=== PATIENT | female | born 1980 | race Caucasian/White ===

== ENCOUNTER 2019-06-10 18:50 | Emergency (ER) | payer BC ==
--- OUTSIDE RECORDS SUMMARY | 2019-06-10 18:56 | XMS REPORT | Continuity of Care Document ---
:1980 External Reference #:[id number] Author Name Anselmo Pearson M.D. (transmitted by agent of provider Dahlia Land) Address [address] [place] [address] Problems Description No Information Available Social History Type Date Description Comments Sex Female Allergies, Adverse Reactions, Alerts Description No Information Available Medications Description No Information Available Medications Administered in Office Medication SIG Qnty Indications Ordering Provider Date TB Intradermal Test Anselmo Pearson M.D. 04/29/2019 Injection Immunizations Description No Information Available Vital Signs Description No Information Available Results Description No Information Available Procedures Description No Information Available Medical Devices Description No Information Available Encounters Type Date Location Provider Dx Diagnosis Office Visit 04/29/2019 TST/PPD Anselmo Pearson M.D. Z11.1 Encounter for screening 9:00a for respiratory tuberculosis Assessments Date Code Description Provider 04/29/2019 Z11.1 Encounter for screening for respiratory Anselmo Pearson M.D. tuberculosis Plan of Treatment No Information Available Functional Status Description No Information Available Mental Status Description No Information Available Referrals Description No Information Available
--- OUTSIDE RECORDS SUMMARY | 2019-06-10 18:56 | XMS REPORT | Continuity of Care Document ---
:1980 External Reference #:[id number] Author Name Anselmo Pearson M.D. (transmitted by agent of provider Radha Baptiste) Address [address] [place] [address] Problems Description No Information Available Social History [...] Medical Devices Description No Information Available Encounters Description No Information Available Assessments Description No Information Available Plan of Treatment No Information Available Functional Status Description No Information Available Mental Status Description No Information Available Referrals Description No Information Available
--- OUTSIDE RECORDS SUMMARY | 2019-06-10 18:56 | XMS REPORT | Continuity of Care Document ---
:1980 External Reference #:[id number] Author Name Anselmo Pearson M.D. (transmitted by agent of provider Dahlia Land) Address [address] [place] [address] Problems Description No Information Available Social History [...] Date Location Provider Dx Diagnosis Office Visit 05/02/2019 TST/PPD Anselmo Pearson M.D. 8:40a Office Visit 04/29/2019 TST/PPD Anselmo Pearson M.D. Z11.1 Encounter for screening 9:00a for respiratory tuberculosis Assessments Date Code Description Provider 04/29/2019 Z11.1 Encounter for screening for respiratory Anselmo Pearson M.D. tuberculosis Plan of Treatment No Information Available Functional Status Description No Information Available Mental Status Description No Information Available Referrals Description No Information Available
--- OUTSIDE RECORDS SUMMARY | 2019-06-10 18:57 | XMS REPORT ---
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 BMI V85.33 Active 593541032974405 33.0-33.9,ADULT Problem Menorrhagia 626.2 Active [id number] ALLERGIES No Information ENCOUNTERS Encounter Location Date Diagnosis [facility] [address] June, [place] [id number] [place] [address] May, Medical [place] [id number] [facility] 103 May, OBGYN [place] [id number] [facility] Mar, Excessive and frequent OBGYN [facility] menstruation with irregular [place], [place] [id number] cycle N92.1 and 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 [facility] 103 Mar, Excessive and frequent OBGYN [facility] menstruation with irregular [place], [place] [id number] cycle N92.1 and 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 [facility] 103 Dec, Excessive and frequent OBGYN [facility] menstruation with irregular [place], [place] [id number] cycle N92.1 and 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 [facility] 103 Dec, OBGYN [place] [id number] [facility] 103 Dec, Excessive and frequent OBGYN [facility] menstruation with irregular [place], [place] [id number] cycle N92.1 and 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 [facility] 103 Nov, OBGYN [place] [id number] [facility] 103 Nov, Excessive and frequent OBGYN [facility] menstruation with irregular [place], [place] [id number] cycle N92.1 [facility] 103 Nov, OBGYN [place] [id number] [facility] 103 Nov, Excessive and frequent OBGYN [facility] menstruation with irregular [place], [place] [id number] cycle N92.1 [facility] 103 Nov, OBGYN [place] [id number] [facility] 103 Nov, OBGYN [place] [id number] [facility] 103 Nov, OBGYN [place] [id number] [facility] 103 Nov, Excessive and frequent OBGYN [facility] menstruation with irregular [place], [place] [address] cycle N92.1 [facility] 103 Nov, Excessive and frequent OBGYN [facility] menstruation with irregular [place], [place] [id number] cycle N92.1 [facility] [address] 17 Nov, 2018 [facility] and [facility] [place] [place] [id number] cycle N92.1 [facility] 103 Nov, OBGYN [place] [id number] [facility] 103 Nov, Encounter for gynecological OBGYN [facility] examination (general) [place], [place] [id number] (routine) with abnormal findings Z01.411 ; Encounter for screening for malignant neoplasm of cervix Z12.4 and Excessive and frequent menstruation with irregular cycle N92.1 [facility] 103 Sep, OBGYN [place] [id number] [facility] 103 May, Menorrhagia 626.2 OBGYN [place] [id number] [facility] 103 Jan, OBGYN [place] [id number] [facility] 103 Jan, Menometrorrhagia 626.2 and OBGYN [facility] BMI 33.0-33.9,ADULT V85.33 [place] [id number] [facility] 103 Oct, Menometrorrhagia 626.2 and OBGYN [facility] BMI 33.0-33.9,ADULT V85.33 [place] [id number] [facility] [address] Sep, Medical Center [place] [id number] [facility] 103 Sep, Menometrorrhagia 626.2 OBN [place] [id number] [address] Aug, [address]ometrorrhagia [address] [place], BMI 33.0-33.9,ADULT V85.33 [place] [id number] [facility] 103 Aug, Menometrorrhagia 626.2 OBGYN [place] [id number] [facility] 103 Aug, Menometrorrhagia 626.2 OBN [place] [id number] [facility] 103 Aug, Menometrorrhagia 626.2 [facility] 621.0 [place] [id number] [facility] 103 Jul, Menometrorrhagia 626.2 [facility] [place] [address] V72.31 IMMUNIZATIONS No Known Immunizations SOCIAL HISTORY Never Assessed REASON FOR REFERRAL FUNCTIONAL STATUS PLAN OF CARE VITAL SIGNS MEDICATIONS Unknown Medications PROCEDURES No Known procedures RESULTS No Results REASON FOR VISIT tcb 04/15-Schedule TLH/BS/cysto. Insurance Providers [facility] Health Member Patient Patient Patient Patient Patient Subscriber Subscriber Subscriber Group Insurance Plan Plan Plan Plan ID Relationship Address Phone Name Date of ID Name Date of No Type Insurance Insurance Insurance Coverage to Subscriber Address Phone Name Dates [employer] [phone] [employer] [place] [id number] Blue [id number] [address] Cross/Blue [place] Cross/Blue Shield [id number] Shield [employer] [phone] [employer] [place] [id number] Blue [id number] [address] [place] Cross/Blue [place] Cross/Blue Shield [id number] Shield MEDICAL (GENERAL) HISTORY Type Description Date Medical History Hypertension Medical History Migraines w/ aura Surgical History Kidney blasting 2006 Surgical History hysteroscopy, D&C, polypectomy 10/16/10 Surgical History BTL 2004 Surgical History Hysteroscopy/D&C: Benign proliferative EM. No 12-22-18 hyperplasia noted Hospitalization History Gallbladder 2000 Hospitalization History Salmonella 2009 Hospitalization History chest pain/poss heart attack 2017
--- OUTSIDE RECORDS SUMMARY | 2019-06-10 18:57 | XMS REPORT ---
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 288398609 anemia secondary to blood loss (chronic) Problem BMI V85.33 Active 839889038218201 33.0-33.9,ADULT Problem Menorrhagia 626.2 Active 729755508 ALLERGIES Substance Reaction Event Type Date Status amoxicillin vomiting and rash Drug Allergy Mar, Active doxycycline vomiting and rash Drug Allergy Mar, Active Percocet-5/325 vomiting Drug Allergy Mar, Active latex rash Drug Allergy Mar, Active oxycodone vomiting and rash Drug Allergy Mar, Active ENCOUNTERS Encounter Location Date Diagnosis [facility] 103 Mar, Excessive and frequent OBGYN [facility] menstruation with irregular [place], [place] [id number] cycle N92.1 and 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 [facility] 103 Dec, OBGYN [place] [id number] [facility] 103 Dec, Excessive and frequent OBGYN [facility] menstruation with irregular [place], [place] [id number] cycle N92.1 and 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 [facility] 103 Nov, [place]BGYN [place] [id number] [facility] 103 Nov, Excessive and frequent OBGYN [facility] menstruation with irregular [place], [place] [address] cycle N92.1 [facility] 103 Nov, OBGYN [place] [address] [facility] 103 Nov, Excessive and frequent OBGYN [facility] menstruation with irregular [place], [place] [address] cycle N92.1 [facility] 103 Nov, OBGYN [place], [place] [id number] [facility] 103 Nov, OBGYN [place], [place] [id number] [facility] 103 Nov, OBGYN [place] [id number] [facility] 103 Nov, Excessive and frequent OBGYN [facility] menstruation with irregular [place], [place] [id number] cycle N92.1 [facility] 103 Nov, Excessive and frequent OBGYN [facility] menstruation with irregular [place], [place] [id number] cycle N92.1 [facility] 103 Nov, Excessive and frequent OBGYN [facility] menstruation with irregular [place], [place] [id number] cycle N92.1 [facility] 103 Nov, [place]BGYN [place] [id number] [facility] 103 Nov, [facility] [place], [place] [id number] (routine) with abnormal findings Z01.411 ; Encounter for screening for malignant neoplasm of cervix Z12.4 and Excessive and frequent menstruation with irregular cycle N92.1 [facility] 103 Sep, [place] [id number] [facility] 103 May, Menorrhagia 626.2 [place] [id number] [facility] 103 Jan, [place]BGYN [place] [id number] [facility] 103 Jan, Menometrorrhagia 626.2 and OBGYN [facility] BMI 33.0-33.9,ADULT V85.33 [place] [id number] [facility] 103 Oct, Menometrorrhagia 626.2 and OBGYN [facility] BMI 33.0-33.9,ADULT V85.33 [place], [place] [id number] [place] [address] Sep, Medical [place] [id number] [facility] 103 Sep, Menometrorrhagia 626.2 OBGYN [place] [id number] [facility] Aug, [address]rhagia [address] [place], BMI 33.0-33.9,ADULT V85.33 [place] [id number] [facility] 103 Aug, Menometrorrhagia 626.2 OBGYN [place], [place] [id number] [facility] 103 Aug, Menometrorrhagia 626.2 OBGYN [place] [id number] [facility] 103 Aug, Menometrorrhagia 626.2 and OBGYN [facility] Endometrial polyp 621.0 [place], [place] [id number] [facility] 103 Jul, Menometrorrhagia 626.2 and OBGYN [facility] GYNECOLOGIC EXAMINATION [place], [place] [id number] V72.31 IMMUNIZATIONS No Known Immunizations SOCIAL HISTORY Never Assessed REASON FOR REFERRAL FUNCTIONAL STATUS PLAN OF CARE Activity Details Follow Up Schedule TLH/BS/cysto. Reason: Pending Test CBC VITAL SIGNS Height 65 in 2019-04-11 Weight 175 lbs 2019-04-11 BMI 29.12 kg/m2 2019-04-11 Blood pressure systolic 110 mm Hg 2019-04-11 Blood pressure diastolic 78 mm Hg 2019-04-11 MEDICATIONS Medication Instructions Dosage Frequency Start End Duration Status Date Date hydrochlorothiazide 50 orally once a 1 tab(s) 24h 30 day(s) Active mg day diclofenac 50mg 1 tablet 24h prn Active megestrol 20 mg orally qd 1 tab(s) 24h 30 days Active nitro macro Active ferrous sulfate 325 mg orally 3 times 1 tab(s) 8h 30 day(s) Active a day PROCEDURES Procedure Date Ordered Result Body Site VENIPUNCT, ROUTINE* Apr 11, 2019 RESULTS No Results REASON FOR VISIT F/u 3 mo to reassess AUB. states she's still bleeding, Draw CBC Insurance Providers [facility] Health Member Patient Patient Patient Patient Patient Subscriber Subscriber Subscriber Group Insurance Plan Plan Plan Plan ID Relationship Address Phone Name Date of ID Name Date of No Type Insurance Insurance Insurance Coverage to Subscriber Address Phone Name Dates [employer] [address] [employer] [place] [id number] Blue [id number] [address] Cross/Blue [place] Cross/Blue Shield [address] Shield [employer] [address] [employer] [place] [id number] Blue [address] [address] Cross/Blue [place] Cross[place]Blue Shield [address] Shield MEDICAL (GENERAL) HISTORY Type Description Date Medical History Hypertension Medical History Migraines w/ aura Surgical History Kidney blasting 2006 Surgical History hysteroscopy, D&C, polypectomy 10/16/10 Surgical History BTL 2004 Surgical History Hysteroscopy/D&C: Benign proliferative EM. No 12-22-18 hyperplasia noted Hospitalization History Gallbladder 2000 Hospitalization History Salmonella 2008 Hospitalization History chest pain/poss heart attack 2017
--- OUTSIDE RECORDS SUMMARY | 2019-06-10 18:57 | XMS REPORT | Continuity of Care Document ---
:1980 External Reference #:[id number] Author Name Anselmo Pearson M.D. (transmitted by agent of provider Radha Baptiste) Address [address] [place] [address] Problems Description No Information Available Social History [...] Description No Information Available Plan of Treatment Future Appointment(s):05/02/2019 8:40 am - Anselmo Pearson M.D. at TST/PPD Functional Status Description No Information Available Mental Status Description No Information Available Referrals Description No Information Available
[2019-06-10 19:09] VITALS: BP 147/99
--- NOTE | 2019-06-10 19:26 | UC ---
Back Pain HPI - HPI Summary HPI Summary: 38 yo with hx of renal stones with onset of severe left flank pain yesterday, increasing over the course of today, with some associated nausea but no vomiting. She sees a urologist who has been tracking persistent stones. Pain was so severe that she had to leave work today. Last stool passage was yesterday. - History of Current Complaint Chief Complaint: UCBackPain Stated Complaint: BACK PAIN Time Seen by Provider: 06/10/19 19:16 Hx Obtained From: Patient Hx Last Menstrual Period: 05/29/19 Onset/Duration: Sudden Onset Timing: Constant Severity Initially: Moderate Severity Currently: Severe Pain Intensity: 9 Character: Sharp, Aching, Spasmodic Aggravating Factor(s): Movement Alleviating Factor(s): Nothing - took ibuprofen at 12:30 today, only one dose today Associated Signs And Symptoms: Negative: Bladder Incontinence, Bowel Incontinence Related History: Similar Episode Dx As - renal stones. - Allergies/Home Medications Allergies/Adverse Reactions: Allergies Allergy/AdvReac Type Severity Reaction Status Date / Time amoxicillin Allergy Vomiting Verified 06/10/19 19:02 doxycycline Allergy Vomiting Verified 06/10/19 19:02 latex Allergy Rash Verified 06/10/19 19:02 oxycodone Allergy Airway Verified 06/10/19 19:02 Obstruction Home Medications: Home Medications Hydrochlorothiazide TAB* [Hydrodiuril TAB*] 50 mg PO DAILY 06/10/19 [History Confirmed 06/10/19] Potassium Citrate [Urocit-K] 1 tab TID 06/10/19 [History Confirmed 06/10/19] PMH/Surg Hx/FS Hx/Imm Hx Previously Healthy: Yes Cardiovascular History: Hypertension GI/ History: Kidney Stones - Surgical History Surgical History: Yes Surgery Procedure, Year, and Place: gall bladder, tubal. lithotripsy - Family History Known Family History: Positive: Hypertension, Diabetes, Respiratory Disease, Other - kidney stones in both parents - Social History Occupation: Employed Full-time Lives: With Family Alcohol Use: None Substance Use Type: None Smoking Status (MU): Light Every Day Tobacco Smoker Type: Cigarettes Amount Used/How Often: 5 cigs/day When Did the Patient Quit Smoking/Using Tobacco: 5 years ago Review of Systems All Other Systems Reviewed And Are Negative: Yes Constitutional: Positive: Negative Skin: Positive: Negative Eyes: Positive: Negative ENT: Positive: Negative Respiratory: Positive: Negative Cardiovascular: Positive: Negative Gastrointestinal: Positive: Nausea Physical Exam Triage Information Reviewed: Yes Appearance: Well-Appearing, Pain Distress - moderate, pacing with pain, standing upright and has pain with position changes. Vital Signs: Initial Vital Signs Temp 97.9 F 06/10/19 18:58 Pulse 94 06/10/19 18:58 Resp 16 06/10/19 18:58 BP 147/99 06/10/19 18:58 Pulse Ox 100 06/10/19 18:58 Eye Exam: Normal ENT: Positive: Normal ENT inspection Neck: Positive: Supple, Nontender, No Lymphadenopathy Respiratory: Positive: Lungs clear, Normal breath sounds Cardiovascular: Positive: RRR, No Murmur Abdomen Description: Positive: No Organomegaly, Soft, CVA Tenderness (L), Other : - tenderness right flank without guarding or rebound.. Negative: CVA Tenderness (R) Bowel Sounds: Positive: Present Musculoskeletal: Positive: Strength Intact, No Edema, ROM Limited @ - lumbar spine with pain in paraspinals. Neurological: Positive: Alert, Muscle Tone Normal Psychological Exam: Normal Skin Exam: Normal Diagnostics - Laboratory Lab Results: UA with 2+ blood, negative test. - Radiology No standard instances Radiology Interpretation Completed By: Radiologist - Patient Name: NARINDER PETERSON Ordering Physician: Saumya Moran MD : [id number] Age: 38 Sex: F [facility]: [facility] Exam Date: 06/10/191932 ADM Status: REG ER Observation Date/ Time: Order Information: CT ABD/PEL W/ O Accession Number: [id number] CPT: 23043 PROCEDURE INFORMATION: Exam: CT Abdomen And Pelvis Without Contrast Exam date and time: 06/10/2019 7: 54 PM Age: 38 years old Clinical indication: Pain; Other: RT flank; Prior surgery; Surgery date: 6+ months; Surgery type: C section; Additional info: Left flank pain x 2 days, known HX of renal stones TECHNIQUE: Imaging protocol: Computed tomography of the abdomen and pelvis without contrast. Radiation optimization: All CT scans at this facility use at least one of these dose optimization techniques: automated exposure control; mA and/or kV adjustment per patient size (includes targeted exams where dose is matched to clinical indication); or iterative reconstruction. COMPARISON: No relevant prior studies available. FINDINGS: Liver: There is mild hepatomegaly. Gallbladder and bile ducts: There are postoperative changes of cholecystectomy. Pancreas: Normal. No ductal dilation. Spleen: Normal. No splenomegaly. Adrenals: Normal. No mass. Kidneys and ureters: There is punctate nonobstructive left nephrolithiasis. No visible right renal or ureteral calculus. Stomach and bowel: Unremarkable. No obstruction. No mucosal thickening. Appendix: The appendix is unremarkable. The appendix is seen best on axial image 59 of series 2. Intraperitoneal space: Unremarkable. No free air. No significant fluid collection. Vasculature: Unremarkable. No abdominal aortic aneurysm. Lymph nodes: Unremarkable. No enlarged lymph nodes. Bladder: Unremarkable as visualized. Reproductive: Unremarkable as visualized. Bones/ joints: There are mild degenerative changes of the spine. Soft tissues: Unremarkable. IMPRESSION: 1. The appendix is unremarkable. 2. There is punctate nonobstructive left nephrolithiasis. No visible right renal or ureteral calculus. Dictated and Authenticated by: Yordan Mayes MD 06/10/2019 8:37 PM Eastern Time ([place] and [place]) This report is only to be considered final once signed by the Provider(s) as displayed in the "<Electronically Signed by >" field (s). Absence of a signature indicates the report is in a draft status and still needs to be finalized. In the event this document was created by someone other than the signing Provider, the individual initiating the document will be listed in the "Entered by:" or "Dictated by:" lua. 1 of 2 Re-Evaluation - Re-Evaluation First Eval Re-Evaluation Time: 20:25 - mild decrease in pain Change: Improved Back Pain Course/Dx - Course Course Of Treatment: Increase fluids, pain control, follow up with urology. Hydrocodone given for tonight, which she reports tolerating in the past. No hx of narcotic use-- reviewed [facility] report [id number] - Differential Dx/Diagnosis Differential Diagnosis/HQI/PQRI: Herniated Disc, Renal Colic, Strain Provider Diagnosis: Renal colic on left side Discharge ED - Sign-Out/Discharge Documenting (check all that apply): Patient Departure All imaging exams completed and their final reports reviewed: Yes - Discharge Plan Condition: Stable Disposition: HOME Patient Education Materials: Renal Colic (ED) Forms: *Work Release Referrals: Rola Shaw PA [Primary Care Provider] - Additional Instructions: Continue high intake of fluids and follow up with your urologist on Thursday for evaluation. - Billing Disposition and Condition Condition: STABLE Disposition: Home
[2019-06-10] MEDS ORDERED: Ketorolac *IM* INJ* 60 MG/2 ML VIAL IM ONE (19:33)
[2019-06-10] MEDS ORDERED: HYDROcodone/ACETAMIN 5-325 MG* 1 TAB PO ONE (20:48)
== END 2019-06-10 21:01 | disposition home or self-care (01) ==
LOC: UCCORT 18:50
DX: N20.0 Calculus of kidney (principal); Z87.442 Personal history of urinary calculi; R11.0 Nausea; Z32.02 Encounter for pregnancy test, result negative; I10 Essential (primary) hypertension; Z79.899 Other long term (current) drug therapy; Z88.5 Allergy status to narcotic agent; Z88.0 Allergy status to penicillin; Z88.1 Allergy status to other antibiotic agents; Z91.040 Latex allergy status; Z87.891 Personal history of nicotine dependence
CPT/HCPCS: 74176; 81003; 84702; 96372; 99202; G0463; J1885